=== PATIENT | male | born 1965 | race Caucasian/White ===

== ENCOUNTER → 2018-07-13 | Outpatient (CLI) | payer OTHER ==
[2018-07-13 19:28] LABS: BASOPHILS ABSOLUTE AUTO 0.04 K/mm3 (0.00-0.23); BASOPHILS PERCENT AUTO 1 % (0-2); EOSINOPHILS ABSOLUTE AUTO 0.09 K/mm3 (0.00-0.68); EOSINOPHILS PERCENT AUTO 1 % (0-6); Hematocrit 46.1 % (37.0-53.0); Hemoglobin 15.8 g/dL (13.5-17.5); IMMATURE GRAN ABSOLUTE AUTO 0.04 K/mm3 (0.00-0.10); IMMATURE GRAN PERCENT AUTO 1 % (0-1); LYMPHOCYTES ABSOLUTE AUTO 1.38 K/mm3 (0.84-5.20); LYMPHOCYTES PERCENT AUTO 16 % (21-46); MONOCYTES ABSOLUTE AUTO 0.78 K/mm3 (0.16-1.47); MONOCYTES PERCENT AUTO 9 % (4-13); Mean Corpuscular HGB 31.9 pg (26.0-34.0); Mean Corpuscular HGB Conc 34.3 g/dL (31.5-36.5); Mean Corpuscular Volume 93 fL (80-100); Mean Platelet Volume 10.2 fL (9.1-12.4); NEUTROPHILS ABSOLUTE AUTO 6.47 K/mm3 (1.96-9.15); NEUTROPHILS PERCENT AUTO 73 % (41-73); Platelet Count 229 K/mm3 (150-400); RDW Coefficient Variation 13.2 % (11.7-14.2); RDW Standard Deviation 44.9 fL (35.1-46.3); Red Blood Cell Count 4.95 M/mm3 (4.30-5.90)
[2018-07-13 20:25] LABS: Alanine Aminotransfer (ALT/SGP 22 U/L (12-78); Albumin/Globulin Ratio 1.2 (0.8-1.8); Alk Phos 75 U/L (50-136); Anion Gap 10 mmol/L (6-16); Aspartate Aminotrans (AST/SGOT 24 U/L (12-37); Bilirubin, Total 0.5 mg/dL (0.1-1.0); Blood Urea Nitrogen 11 mg/dL (8-24); Bun/Creatinine Ratio 11.5 (12.0-20.0); CO2, Blood 24 mmol/L (21-32); Calcium, Blood 9.1 mg/dL (8.5-10.1); Chloride, Blood 94 mmol/L (98-108); Creatinine, Blood 0.96 mg/dL (0.60-1.20); Globulin, Blood 3.4 g/dL (2.2-4.0); Glomerular Filtration Rate >60 (60-); Glucose, Blood 88 mg/dL (70-99); Potassium, Blood 4.8 mmol/L (3.5-5.5); Sodium, Blood 128 mmol/L (136-145); Total Protein, Blood 7.4 g/dL (6.4-8.2)
== END | disposition home or self-care (01) ==
LOC: LAB SHORT 19:03 → LAB 19:03
PROVIDERS: Nurse Practitioner Primary Care
DX: Z00.01 Encounter for general adult medical examination with abnormal findings (principal); F25.9 Schizoaffective disorder, unspecified; F10.20 Alcohol dependence, uncomplicated; R53.83 Other fatigue
CPT/HCPCS: 80053; 84443; 85025

== ENCOUNTER 2025-01-25 19:21 | Inpatient (IN) | payer OTHER ==
[~2025-01-25] VITALS: Ht 175.3 cm; Wt 50.0 kg
[~2025-01-25 19:21] MED LIST: NS 1,000 ML IV SCH
[2025-01-25] MEDS ORDERED: OLAN20 MM (19:53)
[2025-01-25] MEDS ORDERED: DEPAKOTE ER500 M2 PO (19:53)
[2025-01-25 20:47] LABS: Hematocrit 36.4 % (37.0-53.0); Hemoglobin 12.7 g/dL (13.5-17.5); IMMATURE GRAN ABSOLUTE AUTO 0.62 K/mm3 (0.00-0.10); IMMATURE GRAN PERCENT AUTO 5 % (0-1); Mean Corpuscular HGB Conc 34.9 g/dL (31.5-36.5); Mean Corpuscular Volume 90 fL (80-100); NRBC ABSOLUTE 0.02 K/mm3 (0.00-0.02); NRBC Auto 0.2 /100 WBC (0.0-0.2); Platelet Count 170 K/mm3 (150-400); RDW Coefficient Variation 14.4 % (11.7-14.2); RDW Standard Deviation 47.1 fL (35.1-46.3)
[2025-01-25 20:50] LABS: Magnesium, Blood 2.1 mg/dL (1.6-2.4)
[2025-01-25 20:59] LABS: Alanine Aminotransfer (ALT/SGP 35.0 U/L (12-78); Albumin, Blood 1.9 g/dL (3.4-5.0); Albumin/Globulin Ratio 0.4 (0.8-1.8); Anion Gap 9.0 mmol/L (3-11); Aspartate Aminotrans (AST/SGOT 240.0 U/L (12-37); Bilirubin, Total 0.5 mg/dL (0.1-1.0); Blood Urea Nitrogen 26.0 mg/dL (8-24); CO2, Blood 29.0 mmol/L (21-32); Calcium, Blood 8.2 mg/dL (8.5-10.1); Chloride, Blood 94.0 mmol/L (98-108); Creatinine, Blood 0.77 mg/dL (0.60-1.20); Globulin, Blood 4.4 g/dL (2.2-4.0); Glucose, Blood 92.0 mg/dL (70-99); Potassium, Blood 4.8 mmol/L (3.5-5.5); Sodium, Blood 127.0 mmol/L (136-145); Total Protein, Blood 6.3 g/dL (6.4-8.2)
[2025-01-25 21:00] LABS: pH Blood Venous 7.43 (7.34-7.37)
[2025-01-25 21:20] LABS: BAND PERCENT MAN 5 % (0-8); BASOPHILS PERCENT MAN 0 % (0-2); EOSINOPHILS PERCENT MAN 0 % (0-6); LYMPHOCYTES PERCENT MAN 7 % (21-46); METAMYELOCYTE PERCENT MAN 3 % (0-0); MONOCYTES PERCENT MAN 10 % (4-13); MYELOCYTE PERCENT MAN 3 % (0-0); SEG NEUTROPHILS PERCENT MAN 72 % (41-73)
[2025-01-25] MEDS ORDERED: HydrALAZINE HCl 20 MG / ML 1ML Vial IV PRN (23:30)
[2025-01-25 23:46] LABS: C-REACTIVE PROTEIN, EXT RANGE 5.210 mg/dL (0.000-0.300); Ethanol (Alcohol), Blood, Med <3 mg/dL; Phosphorus, Blood 3.5 mg/dL (2.5-4.9); Thyroid Stimulating Hormone 6.040 uIU/mL (0.360-4.800)
[2025-01-25 23:49] LABS: Prothrombin Time Results 11.4 Sec (9.7-11.5)
[2025-01-26] MEDS ORDERED: NS 1,000 ML IV ONE (00:25)
[2025-01-26 00:55] VITALS: BP 161/78
[2025-01-26] MEDS ORDERED: QUETIAPINE FUM150 MG PO (03:21)
--- NOTE | 2025-01-26 03:44 | NUR ---
PT ADMITTED DURING SHIFT. PATIENT ALERT AND ORIENTED 3-4 X4. PATIENT BECOMES HOSTILE WITH RN WHILE TRYING TO COMPLETE ADMISSION AND MED REC. PATIENT ON TELE-RUNNING SR AND ON ROOM AIR. PATIENT IS INCONTINENT OF BOWEL AND BLADDER. RN MADE PATIENT AWARE THAT URINE IS NEEDED FOR TESTING. PATIENT HAS NORMAL SALINE RUNNING. PICTURES OF WOUNDS WERE TAKEN. PATIENT EDUCATED ABOUT FALL PREVENTION AND HOW TO USE CALL LIGHT. BED IN LOW POSITION WITH THE WHEELS LOCKED. BED ALARM ON. CALL LIGHT WITHIN REACH
[2025-01-26 04:53] VITALS: BP 168/84
[2025-01-26 05:15] LABS: BASOPHILS ABSOLUTE AUTO 0.07 K/mm3 (0.00-0.23); BASOPHILS PERCENT AUTO 1 % (0-2); EOSINOPHILS ABSOLUTE AUTO 0.00 K/mm3 (0.00-0.68); EOSINOPHILS PERCENT AUTO 0 % (0-6); Hematocrit 34.4 % (37.0-53.0); Hemoglobin 12.2 g/dL (13.5-17.5); IMMATURE GRAN ABSOLUTE AUTO 0.50 K/mm3 (0.00-0.10); IMMATURE GRAN PERCENT AUTO 4 % (0-1); LYMPHOCYTES ABSOLUTE AUTO 0.72 K/mm3 (0.84-5.20); LYMPHOCYTES PERCENT AUTO 6 % (21-46); MONOCYTES ABSOLUTE AUTO 1.06 K/mm3 (0.16-1.47); MONOCYTES PERCENT AUTO 8 % (4-13); Mean Corpuscular HGB Conc 35.5 g/dL (31.5-36.5); Mean Corpuscular Volume 90 fL (80-100); NEUTROPHILS ABSOLUTE AUTO 10.56 K/mm3 (1.96-9.15); NEUTROPHILS PERCENT AUTO 82 % (41-73); NRBC ABSOLUTE 0.02 K/mm3 (0.00-0.02); NRBC Auto 0.2 /100 WBC (0.0-0.2); Platelet Count 167 K/mm3 (150-400); RDW Coefficient Variation 14.2 % (11.7-14.2); RDW Standard Deviation 46.5 fL (35.1-46.3)
[2025-01-26 05:28] LABS: Prothrombin Time Results 11.9 Sec (9.7-11.5)
[2025-01-26 05:44] LABS: Alanine Aminotransfer (ALT/SGP 31.0 U/L (12-78); Albumin, Blood 1.7 g/dL (3.4-5.0); Albumin/Globulin Ratio 0.4 (0.8-1.8); Anion Gap 9.0 mmol/L (3-11); Aspartate Aminotrans (AST/SGOT 214.0 U/L (12-37); Bilirubin, Total 0.4 mg/dL (0.1-1.0); Blood Urea Nitrogen 23.0 mg/dL (8-24); CO2, Blood 26.0 mmol/L (21-32); Calcium, Blood 7.6 mg/dL (8.5-10.1); Chloride, Blood 98.0 mmol/L (98-108); Creatinine, Blood 0.63 mg/dL (0.60-1.20); Globulin, Blood 4.0 g/dL (2.2-4.0); Glucose, Blood 82.0 mg/dL (70-99); Potassium, Blood 4.3 mmol/L (3.5-5.5); Sodium, Blood 129.0 mmol/L (136-145); Total Protein, Blood 5.7 g/dL (6.4-8.2)
[2025-01-26 07:54] VITALS: BP 153/77
--- NOTE | 2025-01-26 08:25 | NUR ---
[facility] CALLED. THEY ARE UNABLE TO ASSESS PT HEART RYTHM. THEY ARE UNABLE TO LOCATE A CONSISTENT P WAVE. THEY REQUESTED AN EKG. ORDER PLACED. CARE ONGOING.
[2025-01-26] MEDS ORDERED: Enoxaparin 40 MG/0.4 ML SYR SC SCH (09:00)
--- NOTE | 2025-01-26 13:40 | NUR ---
INCONTENT OF URINE PT SOILED. REFUSING TO ALLOW STAFF TO CLEAN HIM UP. STATING," I GET TO CHOOSE." PT EDIUCATED ABOUYT SKIN SAFETY. CARE ONGOING.
[2025-01-26 16:05] VITALS: BP 145/79
--- NOTE | 2025-01-26 16:36 | NUR ---
NOTE PT RESTING QUIETLY. VSS. HE HAS DENIED PAIN OR DISCOMOFRT. MARGINAL ORAL INTAKE FOOD/FLUIDS. ENCOURAGED TO REPOSITION. PT IS ABLE TO MOVE IN BED BUT UNABLE TO GET UP. LEGS EELVATED AND SUPPORTED ON PILLOWS TO FACILITATE DECREASE IN EDEMA. PT AGREED TO A BED BATH. ATTENDS ON. PT IS UNAWARE OF VOIDING. NO BM TODAY. HE REFUSES THE MALE PUREWICK. CARE ONGOING.
[2025-01-26 19:14] VITALS: BP 166/91
[2025-01-26 23:15] VITALS: BP 169/66
[2025-01-27 03:25] VITALS: BP 169/84
[2025-01-27 05:11] LABS: Anion Gap 9.0 mmol/L (3-11); Blood Urea Nitrogen 18.0 mg/dL (8-24); CO2, Blood 24.0 mmol/L (21-32); Calcium, Blood 7.5 mg/dL (8.5-10.1); Chloride, Blood 101.0 mmol/L (98-108); Creatinine, Blood 0.55 mg/dL (0.60-1.20); Glucose, Blood 82.0 mg/dL (70-99); Potassium, Blood 4.2 mmol/L (3.5-5.5); Sodium, Blood 130.0 mmol/L (136-145)
--- NOTE | 2025-01-27 06:16 | NUR ---
NIGHT SUMMARY: PT COOPERATIVE WITH THIS RN OVERNIGHT. COMPLETE BED CHANGE DUE TO INCONTINENCE BUT REFUSES TO USE URINAL OR PUREWICK. FLUIDS RUNNING, BG 80 DURING AM CHECK, ORANGE JUICE GIVEN AND BROUGHT IT UP TO 93. PT STARTED HAVING PAIN LAST EVENING, MEDICATIONS ORDERED AND ADMINISTERED PER EMAR. PT ABLE TO REPO SELF IN BED.
[2025-01-27 07:10] VITALS: BP 150/88
--- NOTE | 2025-01-27 07:44 | NUR ---
NOTE PT VERY AGGITATED. HE IS DEMNADING TO GO HOME. FAMILY CALLED. HE WAS YELLING AT THEM. HE WANTS THEM TO REANT HIM A HOTEL. ATTEMPTED TO CLARIFY THE NEED FOR A DISCHARGE PLAN. HE AGREED TO HOSPICE BUT DOESN'T WANT TO WAIT. HE THINKS HIS 87 YEAR OLD MOTHER CAN CARE FOR HIM ALONE. CARE ONGOING.
--- NOTE | 2025-01-27 11:00 | NUR ---
SUPPORTIVE VISIT WITH ATTEMPTED GOALS OF CARE DELAYED ENTRY FROM 01/27/25 RONDA IS HESITANT TO CONVERS AT FIRST. A COUPLE OF MINUTES IN TO VISIT, RONDA OPENED UP AND SHARED HE HAS INCREASED FATIGUE, DECREASE IN FEELING HUNGRY, DECREASE IN ORAL INTAKE. OVER THE LAST COUPLE OF MTS, RONDA REPORTS LOSING APX 40-50 LBS. PT WOULD LIKE TO REMAIN A FULL CODE AND PURSUE ONCOLOGY CONSULT. RECOMMENDED MARINOL FOR APPETITE STIMULAT AND PAIN MNGMT. PT HIS A HEAVY NICOTINE AND THC SMOKER. RCV'D VERBAL ORDER FOR MARINOL. ORDER PLACED ACCORDINGLY. PC TO REMAIN AVAILABLE NEEDED.
[2025-01-27 11:40] VITALS: BP 185/80
--- NOTE | 2025-01-27 14:31 | NUR ---
SUJATA KNOECKED AND ENTERD ROOM. FOUND PT SMILING AND SLEEPY. ASKED HIM HOW HE FELT AFTER THE MARINOL? HE STATED," REALLY GOOD. i TOOK A NAP!" PT RELAXED AND CONVERSENT. TALKING ABOUT HIS PETS AND WANTING TO USE A W/C TO GET OUT ON HIS PORCH TO SIT IN THE SUN. CARE ONGOING.
[2025-01-27 15:51] VITALS: BP 181/69
--- NOTE | 2025-01-27 16:37 | NUR ---
NOTE PT RSTING QUIETLY CONSULT CALLED TO DR CONKLIN ANSWERING SERVICE PER ORDER. PT AGREEABLE TO MARINOL. SECOND DOSE TIME CHANGED PER PHARMACY. BP ELEVATED. STARTED ON COZAAR PER ORDER. PT ONCTINENT OF BOWL AND BLADDER. ATTENDS ON. CAITY AREA LESS RED THAN YESTERDAY. CREAM APPLIED TO SKIN. POOR APPETITE. CARE ONGOING.
[2025-01-27 19:58] VITALS: BP 164/72
[2025-01-27 23:31] VITALS: BP 178/75
[2025-01-28] VITALS (10 sets, daily range): BP systolic 114–188; BP diastolic 73–115
--- NOTE | 2025-01-28 04:34 | NUR ---
PATIENT ALERT AND ORIENTED X4. PATIENT IS ON TELE AND HAS IV FLUIDS RUNNING @ 75 ML/H. PATIENT ABLE TO TURN SELF IN BED. PATIENT IS INCONTINENT OF BLADDER. RN REMINDED PATIENT THAT URINE IS NEEDED FOR TESTING. PATIENT DECLINED TO HAVE MALE PUREWICK PUT ON TO COLLECT URINE. BED IS IN LOW POSITION WITH THE WHEELS LOCKED. CALL LIGHT WITHIN REACH
[2025-01-28 09:57] LABS: Alpha Feto Protein, Tumor Mkr 6.6 ng/mL (0.0-8.0); Carcinoembryonic Antigen 28.9 ng/mL (0.0-3.0)
--- NOTE | 2025-01-28 11:00 | NUR ---
UNABLE TO OBTAIN 02 SATURATION. RT AT BEDSIDE FOR ASSISTANCE. STILL UNABLE TO RECIEVE. NO SIGNS OR SYMPTOMS OF RESP DISTRESS NOTED. PT REPORTS NO BREATHING CONCERNS OR DIFFICULTIES.
--- NOTE | 2025-01-28 13:45 | NUR ---
RONDA DECLINED VISIT. "I JUST WANT TO SLEEP RIGHT NOW."
--- NOTE | 2025-01-28 14:35 | NUR ---
DR RED NOTIFIED OF 3RD DEGREE HEART BLOCK PER FIBER GLASS WORKER REPORTS. VERBAL ORDER RECIEVED FOR EKG. EKG OBTAINED. DR RED AT BEDSIDE TO EVALUATE EKG. DR RED TOOK EKG REPORTS WITH HIM.
--- NOTE | 2025-01-28 16:09 | NUR ---
PT AGREED TO PLACING MEPILEX ON COCCYX AREA DUE TO REDNESS AND SKIN TEAR. PT EDUCATED ON TURNING AND ELEVATING HIP WITH PILLOWS. PT REFUSING ANY REPOSITIONING AT THIS TIME.
--- NOTE | 2025-01-28 17:24 | NUR ---
SHIFT SUMMARY PT IS A/OX2-3, CONFUSION TO CURRENT SITUATION AT TIMES AND DATE/TIME, FORGETFUL. MUMBLED SPEECH. BEDREST AT THIS TIME RELATED TO WEAKNESS. VERY POOR ORAL INTAKE, INTAKE ENCOURAGED THROUGHOUT THIS SHIFT. ON TELE RUNNING 3RD DEGREE AV BLOCK IN THE 80'S. SEE PREVIOUS NOTE. CARDIOLOGY CONSULTED AND AT BEDSIDE THIS AFTERNOON. CONTINUOUS NS RUNNING @ 75 ML/HR. LIVER BX EXPECTED IN THE MORNING. BED ALARM ON. CALL LIGHT IN REACH.
--- NOTE | 2025-01-28 18:15 | NUR ---
THIS RN CALLED INTO PT'S ROOM BY SPECIAL EVENTS ASSISTANT FOR BLOOD SUGAR OF 41. PT ENCOURAGE ORAL INTAKE AND JUICE. BLOOD SUGAR RECHECKED AND CAME BACK AT 33. PT CONTINUES TO BE ENCOURAGE TO DRINK JUICE. DR RED CALLED. VERBAL ORDER RECIEVED PER AUG. CHARGE NURSE NOTIFIED. D50 PUSHED AND BLOOD SUGAR RECHECKED. FLUIDS STARTED PER AUG.
[2025-01-28] MEDS ORDERED: D5W-LR 1,000 ML IV SCH (18:20)
[2025-01-28] MEDS ORDERED: Albuterol 2.5 MG/3 ML VIAL ONE (20:24)
[2025-01-28] MEDS ORDERED: Albuterol 2.5 MG/3 ML VIAL INH SCH (20:25)
[2025-01-28 20:26] LABS: pH Blood Arterial 7.38 (7.35-7.45)
[2025-01-28] MEDS ORDERED: Ipratropium/Albuterol SulF 2.5-0.5MG/3 ML Amp INH SCH ×2 (20:55→22:00)
[2025-01-28 20:58] LABS: Hematocrit 32.3 % (37.0-53.0); Hemoglobin 11.3 g/dL (13.5-17.5); Mean Corpuscular HGB Conc 35.0 g/dL (31.5-36.5); Mean Corpuscular Volume 91 fL (80-100); NRBC ABSOLUTE 0.09 K/mm3 (0.00-0.02); NRBC Auto 5.5 /100 WBC (0.0-0.2); Platelet Count 149 K/mm3 (150-400); RDW Coefficient Variation 15.0 % (11.7-14.2); RDW Standard Deviation 49.7 fL (35.1-46.3)
[2025-01-28] MEDS ORDERED: CefTRIAXone Sodium 1,000 MG in NS 100 ML IV SCH (21:00)
[2025-01-28 21:02] LABS: Alanine Aminotransfer (ALT/SGP 48.0 U/L (12-78); Albumin, Blood 1.4 g/dL (3.4-5.0); Albumin/Globulin Ratio 0.4 (0.8-1.8); Anion Gap 13.0 mmol/L (3-11); Aspartate Aminotrans (AST/SGOT 375.0 U/L (12-37); Bilirubin, Total 0.4 mg/dL (0.1-1.0); Blood Urea Nitrogen 31.0 mg/dL (8-24); CO2, Blood 22.0 mmol/L (21-32); Calcium, Blood 7.7 mg/dL (8.5-10.1); Chloride, Blood 103.0 mmol/L (98-108); Creatinine, Blood 0.74 mg/dL (0.60-1.20); Globulin, Blood 3.7 g/dL (2.2-4.0); Glucose, Blood 46.0 mg/dL (70-99); Potassium, Blood 5.1 mmol/L (3.5-5.5); Sodium, Blood 133.0 mmol/L (136-145); Total Protein, Blood 5.1 g/dL (6.4-8.2)
[2025-01-28 21:09] LABS: BAND PERCENT MAN 8 % (0-8); BASOPHILS ABSOLUTE MAN 0.00 K/mm3 (0.00-0.23); BASOPHILS PERCENT MAN 0 % (0-2); EOSINOPHILS ABSOLUTE MAN 0.00 K/mm3 (0.00-0.68); EOSINOPHILS PERCENT MAN 0 % (0-6); LYMPHOCYTES ABSOLUTE MAN 0.44 K/mm3 (0.84-5.20); LYMPHOCYTES PERCENT MAN 27 % (21-46); MONOCYTES ABSOLUTE MAN 0.09 K/mm3 (0.16-1.47); MONOCYTES PERCENT MAN 6 % (4-13); NEUTROPHILS ABSOLUTE MAN 1.10 K/mm3 (1.96-9.15); SEG NEUTROPHILS PERCENT MAN 59 % (41-73)
[2025-01-28] MEDS ORDERED: Glucagon, Human Recombinant 1 MG/Vial IV ONE (22:20)
[2025-01-28] MEDS ORDERED: Vancomycin (Pharmacy Consult) IV SCH (23:00)
[2025-01-29 00:35] LABS: pH Blood Venous 7.31 (7.34-7.37)
--- NOTE | 2025-01-29 00:43 | NUR ---
FASHION DESIGN PROFESSOR: THIS RN WENT TO GET EVENING VITALS ON PT, PT WAS WHEEZING AND LOOKED TO BE IN RESPIRATORY DISTRESS, RN ATTEMPTED TO GET VITALS AND WAS UNABLE TO GET AN O2 SATURATION ON PT. RN GOT CHARGE NURSE TO HELP BOOST AND LAY A SECOND SET OF EYES ON PT. PT BOOSTED AND ATTEMPTS WERE MADE TO GET AND OXYGEN READING. WHEN READING FINALLY WENT THROUGH PT WAS SATTING AT 78% ON ROOM AIR. OXYGEN WAS APPLIED AND THE RT ON THE FLOOR WAS BROUGHT INTO THE ROOM. PT WAS REQUIRING 13L TO GET O2 SAT UP TO 88%. FASHION DESIGN PROFESSOR WAS CALLED AT THIS TIME. PT WAS PUT ON NON REBREATHER AND AN ABG WAS DRAWN. EKG WAS ALSO TAKEN. PT STILL ON TELE DURING THIS. BG WAS TAKEN INITIALLY WHEN CHARGE CAME IN AND BG WAS 79, ON RECHECK AROUND 45 MIN LATER BG DROPPED TO 65. PT HAD A HYPOGLYCEMIC EPISODE AROUND 1730 DURING THE DAY SHIFT. PROVIDER WANTED BG CHECKS Q 15MIN. THEREFORE PT NEEDED TO BE TRANSFERRED TO HIGHER LEVEL OF CARE AND MONITORING. PT BROUGHT DOWN BY RT, AGRIBUSINESS PROFESSOR, AND THIS RN, AND THIS RN GAVE BEDSIDE REPORT TO PCU NURSE.
[2025-01-29 01:30] VITALS: BP 127/86
[2025-01-29] MEDS ORDERED: Dextrose 50% 50 ML Vial IV ONE ×2 (01:40→06:00)
[2025-01-29 03:30] LABS: Source, Urine Straight Cath
[2025-01-29 03:36] LABS: Bilirubin, Urine Neg (Neg); Glucose Qualitative, Urine Neg (Neg); Ketones, Urine Neg (Neg); Leukocyte Esterase, Urine Neg (Neg); Protein, Urine 3+ (Neg); Specific Gravity, Urine 1.010 (1.003-1.022); Urobilinogen, Urine 2+ (Normal)
[2025-01-29 03:38] LABS: Color, Urine Amber (P-Yellow)
[2025-01-29 03:53] LABS: U Amphetamine Screen Not Detected; U Barbituate Screen Not Detected; U Benzodiazapine Screen Not Detected; U Buprenorphine Screen Not Detected; U Cannabinoids Screen DETECTED; U Cocaine Screen Not Detected; U Methadone Screen Not Detected; U Methamphetamine Screen Not Detected; U Opiates Screen Not Detected; U Oxycodone Screen Not Detected; U Phencyclidine Screen Not Detected
[2025-01-29 04:14] LABS: Red Blood Cells, Urine TNTC /hpf (0-2); White Blood Cells, Urine 0-2 /hpf (0-5)
[2025-01-29 04:18] VITALS: BP 100/65
--- NOTE | 2025-01-29 04:50 | NUR ---
SHIFT SUMMARY PT ALERT AND ORIENTED TO ALL BESIDES SITUATION. PT HAS MUMBLED SPEECH SO VERY DIFFICULT TO CONVERSE WITH AND TENDS TO GET VERY FRUSTURATED IF HE IS ASKED TO REPEAT HIMSELF. PT SEEMS TO HAVE SOME PSYCH HX HOWEVER THAT IS UNKNOWN AT THIS TIME. PT ARRIVED TO PCU A MED XFER AT START OF SHIFT D/T HYPOXIA. ARRIVED ON HIFL NC WITH NEB TX IN PROGRESS. ONCE TX WAS FINISHED THIS NURSE WAS ABLE TO MAINTAIN AN SPO2 >90% ON 10L. THROUGHOUT THE NIGHT PT HAS BEEN REQUESTING TO TAKE A BREAK FROM THE OXYGEN. EDUCATED AND WAS ABLE TO KEEP THE CANNULA ON. HOWEVER, PT HAS BEEN NEEDING 15L AT TIMES TO MAINTAIN. LUNG SOUNDS VERY COURSE WITH AUDIBLE WHEEZING. CXR ORDERED AND COMPLETED, AWAITING TO BE READ. PT TACHYPNEIC HOWEVER STATES HE DOES NOT FEEL SOB. ON TELE PT PRESENTS WITH A-V DISSASSOCIATION 70s-80s. BPs WNL. NO CHEST PAIN OR PRESSURE REPORTED. PT ARRIVED WITH CBG IN 60s. WAS PLACED ON D5 LR BUT CBG WAS RAPIDLY DROPPING STILL. RESIDENT NOTIFIED AND WAS ABLE TO SWITCH FLUIDS OVER TO D10 @ 25ML/HR. THE NIGHT PROGRESSED AND PTs CBG WAS NOT IMPROVING PT IS NOW ON D10 @ 125 WITH X1 GLUCAGON GIVEN, X1 D50 AMP GIVEN AND SEVERAL APPLE JUICES LATER PTs CBG IS STILL FLUCTUATING. BLOOD SUGARS TAKEN Q30 MINUTES TO MONITOR. PT HAS PITTING BLE EDEMA, RESIDENT MADE AWARE OF FLUID OVERLOAD WITH ELEVATED BNP AND ONE TIME ORDER OF LASIX GIVEN. PT HADNT URINATED ALL NIGHT WITH THE MALE PURWICK. ORDER REQUESTED FOR LINDSAY PLACEMENT AND PLACED WITH NO ISSUES. EDWIN COLORED URINE PRESENT WITH UA SENT TO LAB. SEE CHART FOR RESULTS. NO FURTHER QUESTIONS OR CONCERNS AT THIS TIME. WILL CONTINUE WITH PLAN OF CARE.
[2025-01-29 05:29] LABS: Hematocrit 29.9 % (37.0-53.0); Hemoglobin 10.0 g/dL (13.5-17.5); Mean Corpuscular HGB Conc 33.4 g/dL (31.5-36.5); Mean Corpuscular Volume 94 fL (80-100); NRBC ABSOLUTE 0.07 K/mm3 (0.00-0.02); NRBC Auto 6.3 /100 WBC (0.0-0.2); Platelet Count 135 K/mm3 (150-400); RDW Coefficient Variation 15.5 % (11.7-14.2); RDW Standard Deviation 53.1 fL (35.1-46.3)
--- NOTE | 2025-01-29 05:56 | NUR ---
UPON SHIFT CHANGE ON THE MEDICAL FLOOR THIS RN WAS NOTIFIED PT HAD A LOW BG EARLIER ON DAY SHIFT. THERE WERE NO NEW BG ORDERS SO PROVIDER WAS CALLED FOR CLARIFICATION. PROVIDER WANTED Q4 BG CHECKS AND FOR THE D5 LR TO BE INCREASED TO 100ML/HR.
[2025-01-29 05:57] LABS: BAND PERCENT MAN 28 % (0-8); BASOPHILS ABSOLUTE MAN 0.00 K/mm3 (0.00-0.23); BASOPHILS PERCENT MAN 0 % (0-2); BLASTS PERCENT MAN 8 % (0-0); EOSINOPHILS ABSOLUTE MAN 0.00 K/mm3 (0.00-0.68); EOSINOPHILS PERCENT MAN 0 % (0-6); LYMPHOCYTES ABSOLUTE MAN 0.17 K/mm3 (0.84-5.20); LYMPHOCYTES PERCENT MAN 16 % (21-46); METAMYELOCYTE ABSOLUTE MAN 0.15 K/mm3 (0.00-0.00); METAMYELOCYTE PERCENT MAN 14 % (0-0); MONOCYTES ABSOLUTE MAN 0.00 K/mm3 (0.16-1.47); MONOCYTES PERCENT MAN 0 % (4-13); MYELOCYTE ABSOLUTE MAN 0.28 K/mm3 (0.00-0.00); MYELOCYTE PERCENT MAN 26 % (0-0); NEUTROPHILS ABSOLUTE MAN 0.39 K/mm3 (1.96-9.15); SEG NEUTROPHILS PERCENT MAN 8 % (41-73)
[2025-01-29 05:58] LABS: Alanine Aminotransfer (ALT/SGP 144.0 U/L (12-78); Albumin, Blood 1.3 g/dL (3.4-5.0); Albumin/Globulin Ratio 0.4 (0.8-1.8); Anion Gap 12.0 mmol/L (3-11); Aspartate Aminotrans (AST/SGOT 1015.0 U/L (12-37); Bilirubin, Total 0.3 mg/dL (0.1-1.0); Blood Urea Nitrogen 33.0 mg/dL (8-24); CO2, Blood 22.0 mmol/L (21-32); Calcium, Blood 7.4 mg/dL (8.5-10.1); Chloride, Blood 102.0 mmol/L (98-108); Creatinine, Blood 0.85 mg/dL (0.60-1.20); Globulin, Blood 3.4 g/dL (2.2-4.0); Glucose, Blood 55.0 mg/dL (70-99); Potassium, Blood 4.8 mmol/L (3.5-5.5); Sodium, Blood 131.0 mmol/L (136-145); Total Protein, Blood 4.7 g/dL (6.4-8.2)
[2025-01-29 06:00] VITALS: BP 111/82
[2025-01-29] MEDS ORDERED: Albumin (Human) 25gm/100ml 100 ML IV SCH (09:30)
[2025-01-29 10:49] VITALS: BP 115/49
[2025-01-29 11:36] LABS: Vancomycin, Random 13.6 ug/mL
--- NOTE | 2025-01-29 12:04 | NUR ---
Spiritual Care Visit. Pt. welcomed my visit with an extended handshake. Facilitated a life review Pt. displayed evidence of a low accuity, as he responded affirmatively to every question this aerospace medicine physician asked. Pt. did verbalize that he had no pain, but welcomed prayer. Prayed with Pt. Spiritual Care will remain available to the Pt.
[2025-01-29] MEDS ORDERED: Atropine Sulfate 1% Opth Soln 2ML BTL SL PRN (12:25)
[2025-01-29] MEDS ORDERED: Morphine Sulfate 20 MG/1ML 1 ML Oral Syringe SL PRN (12:25)
[2025-01-29] MEDS ORDERED: Ipratropium/Albuterol SulF 2.5-0.5MG/3 ML Amp INH PRN (16:20)
--- NOTE | 2025-01-29 16:26 | NUR ---
COMFORT CARE STARTED THIS MORNING. SPOKE WITH PT, SON RONDA, AND HIS MOTHER TAI THIS MORNING. ALL PARTYS INCLUDING PT ELECT FOR COMFORT MEASURES ONLY. PRIMARY RN AT BEDISDE WHEN PT CONFIRMED HIS CHOICE OF COMFORT VS TX. NEW ORDERS OBTAINED FROM PROVIDER. COMFORT ORDERS PLACED ACCORDINGLY. FAMILY CONTACT INFO: SON Xuan DOUGLAS [phone] MOTHER - TAI DU [phone] FATHER TAWNYA, TENISHA MOTHER ROSARIO [phone] BROTHER - SAHRA [phone] HOME OF CHOICE: [facility]. FATHER TAWNYA SOUSA WILL TAKE CARE OF FINAL ARRANGEMENTS.
--- NOTE | 2025-01-29 17:49 | NUR ---
SHIFT SUMMARY; ASSUMED CARE AT 0700. A/A/OX2-3. LABORED BREATHING 15L O2 VIA NC. BILATERAL LOWER EXTREMITY DUSKY, DELAYED CAP REFILL AND EDEMA. LINDSAY IN PLACE. NOTIFIED DR. RED OF ABNORMAL AM LABS. DR. RED AT BEDSIDE TO DISCUSS. PT STATES DOES NOT WANT CPR OR INTUBATION. PALLATIVE CARE NOTIFIED TO DISCUSS FURTHER WITH PT. WHILE IN ROOM WITH PALLATIVE CARE PT STATES JUST WANTS TO BE MADE COMFORTABLE, DR. RED NOTFIED, COMFORT CARE ORDERS PLACED. LOC DECREASED T/O DAY AND NO LONGER VERBAL OR RESPONDING TO STIMULI. MEDICATED FOR AIR HUNGER PER EMAR. REPOSITIONED FOR COMFORT Q2. WILL CONTINUE TO TREAT UNTIL REPORT GIVEN TO NOC SHIFT RN.
--- NOTE | 2025-01-29 18:27 | NUR ---
PALLIATIVE CARE NOTE: NOTIFIED PT PASSED AT 1809. NOTIFIED SON WESLEY AND FATHER. WESLEY STATED HE WOULD NOTIFY HIS MOTHER AND BROTHER. WESLEY GAVE PERMISSION TO RELEASE PT TO HOME. CONDOLENCES GIVEN TO FAMILY.
== END 2025-01-29 20:17 | DRG 435 ==
LOC: ER 19:21 → PCU 23:13 → MEDS 23:13 → EDBEDREQDT 01-26 00:21 → MEDS 01-26 00:49 → PCU 01-28 20:57
PROVIDERS: Emergency Medicine; Internal Medicine; Internal Medicine Hematology & Oncology; Nurse Practitioner Acute Care; Student in an Organized Health Care Education/Training Program; ADMIT Student in an Organized Health Care Education/Training Program
PROC: 4A033R1 Measurement of Arterial Saturation, Peripheral, Percutaneous Approach (ICD-10-PCS; principal; 2025-01-28)
PROC: 3E03329 Introduction of Other Anti-infective into Peripheral Vein, Percutaneous Approach (ICD-10-PCS; 2025-01-29)
PROC: 3E033XZ Introduction of Vasopressor into Peripheral Vein, Percutaneous Approach (ICD-10-PCS; 2025-01-29)
DX: C78.7 Secondary malignant neoplasm of liver and intrahepatic bile duct (principal); A41.9 Sepsis, unspecified organism; J18.9 Pneumonia, unspecified organism; J96.01 Acute respiratory failure with hypoxia; R65.21 Severe sepsis with septic shock; I21.A1 Myocardial infarction type 2; E43 Unspecified severe protein-calorie malnutrition; E87.1 Hypo-osmolality and hyponatremia; Z66 Do not resuscitate; Z51.5 Encounter for palliative care; I16.1 Hypertensive emergency; I47.19 Other supraventricular tachycardia; I44.2 Atrioventricular block, complete; J44.1 Chronic obstructive pulmonary disease with (acute) exacerbation; Z68.1 Body mass index [BMI] 19.9 or less, adult; J44.0 Chronic obstructive pulmonary disease with (acute) lower respiratory infection; C79.51 Secondary malignant neoplasm of bone; C80.1 Malignant (primary) neoplasm, unspecified; R62.7 Adult failure to thrive; I10 Essential (primary) hypertension; I16.0 Hypertensive urgency; F17.210 Nicotine dependence, cigarettes, uncomplicated; E16.2 Hypoglycemia, unspecified; Z79.899 Other long term (current) drug therapy
CPT/HCPCS: 36415; 36600; 71045; 71260; 74177; 80048; 80053; 80202; 80320; 81001; 82105; 82378; 82550; 82803; 82947; 83605; 83690; 83735; 83880; 84100; 84134; 84439; 84443; 84484; 85025; 85610; 86140; 86301; 87040; 93005; 93010; 94640; 94644; 94664; 94762; 97161; 99285-25; A9270; J0360; J0456; J0696; J1610; J1650; J1938; J2919; J3373; J7030; J7050; J7121; J7799; P9047; Q0167; Q9967